=== PATIENT | female | born 1990 | race American Indian/Alaskan Native ===

== ENCOUNTER 2018-05-02 21:18 | Emergency (ER) | payer SELFPAY ==
[2018-05-02] MEDS ORDERED: TYLENOL PO ONE (21:45)
[2018-05-02] MEDS ORDERED: TYLENOL ONE (21:46)
[2018-05-02] MEDS ORDERED: TETRACAINE 0.5% ONE (23:58)
[2018-05-02] MEDS ORDERED: BSS ONE (23:58)
[2018-05-02] MEDS ORDERED: FUL-GLO OP ONE (23:58)
[2018-05-03] MEDS ORDERED: FUL-GLO OP ONE (00:07)
[2018-05-03] MEDS ORDERED: TETRACAINE 0.5% OU ONE (00:08)
[2018-05-03] MEDS ORDERED: BSS OU ONE (00:08)
--- NOTE | 2018-05-03 01:28 | Emergency Department Report ---
Eye Injury/Foreign Body - [facility] Eye Location: Left Severity: Mild Eye Symptoms: Eye Pain: Yes, Blurred Vision: No, Eye Redness: Yes, Grinding/ Hammering Metal: No, Used Eye Protection: No, Contact Lens Use: Yes, Recalls Injury: No, Photophobia: Yes Other History: 27-year-old -[place] female comes in with right eye that is blurry and painful with left-sided headache. Onset was this morning. Patient admits to falling asleep in her contacts. Patient's concerned that she has a white spot on her cornea near the nasal. ED Review of Systems ROS: Stated complaint: LT EYE IRRITATION Other details as noted in HPI ED Past Medical Hx - Past Medical History Previous Medical History?: No - Surgical History Past Surgical History?: No - Social History Smoking Status: Never Smoker Substance Use Type: None - Medications Home Medications: Home Medications Medication Instructions Recorded Confirmed Last Taken Type Erythromycin [Erythromycin Ophth 1 applic OS QID #1 tube 05/03/18 Unknown Rx Oint] HYDROcodone/APAP 5-325 [Dixon 1 each PO Q6HR PRN #12 tablet 05/03/18 Unknown Rx 5/325] Ibuprofen [Motrin 800 MG tab] 800 mg PO Q8HR PRN #30 tablet 05/03/18 Unknown Rx Eye Injury Exam - Exam General: Vital signs noted. No distress. Alert and acting appropriately. - Visual Acuity Left Vision Acuity Degree: 20/200 Eye Exam: Left Injection, Left EOMI, Left Fluorescein Uptake, Left Corneal Edema , Left Photophobia, Neither Chemosis, Neither Abnormal Pupil, Neither Eye Foreign Body, Neither Lid Foreign Body, Neither Mucous Discharge, Neither Purulent Discharge Right Vision Acuity Degree: 20/20 ED Course Vital Signs 05/02/18 05/02/18 21:38 22:00 Temperature 98.7 F Pulse Rate 86 Respiratory 12 18 Rate Blood Pressure 128/70 O2 Sat by Pulse 95 Oximetry ED Medical Decision Making - Medical Decision Making He has been evaluated by this provider fast track. Patient was given Tylenol for pain management. Fluorescein exam shows uptake to the cornea of the left eye. There is a pinpoint area approximately 7:00. Discussed with patient all place her on erythromycin ophthalmic ointment, ibuprofen, Dixon and is very important for her to follow-up with ophthalmology tomorrow. Patient verbalized understanding Critical care attestation.: If time is entered above; I have spent that time in minutes in the direct care of this critically ill patient, excluding procedure time. ED Disposition Clinical Impression: Corneal abrasion due to contact lens Qualifiers: Laterality: left Qualified Code(s): H18.822 - Corneal disorder due to contact lens, left eye Disposition: DC-01 TO HOME OR SELFCARE Is pt being admited?: No Does the pt Need Aspirin: No Condition: Stable Instructions: Corneal Abrasion (ED) Additional Instructions: Please use eyedrops as described. Pain medication as needed. Please do not put contacts back in the eye until he had been cleared from ophthalmology. These where sunglasses to protect the eye. 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 Prescriptions: Erythromycin [Erythromycin Ophth Oint] 1 applic OS QID #1 tube HYDROcodone/APAP 5-325 [Dixon 5/325] 1 each PO Q6HR PRN #12 tablet PRN Reason: Pain Ibuprofen [Motrin 800 MG tab] 800 mg PO Q8HR PRN #30 tablet PRN Reason: Pain , Severe (7-10) Referrals: PRIMARY CAREMD [Primary Care Provider] - 3-5 Days NATIVIDAD GOLDSMITH MD [Staff Physician] - 3-5 Days [facility], [facility] [Provider Group] - 3-5 Days [facility] [Provider Group] - 3-5 Days Forms: Work/School Release Form(ED)
[2018-05-03 02:37] VITALS: BP 124/72
== END 2018-05-03 02:20 | disposition home or self-care (01) ==
LOC: ED 21:18
DX: H18.822 Corneal disorder due to contact lens, left eye (principal); R51 Headache
CPT/HCPCS: 99283